=== PATIENT | female | born 1955 | race Caucasian/White ===

== ENCOUNTER → 2021-12-12 14:02 | Outpatient (CLI) | payer MEDICARE, OTHER, SELFPAY ==
[2021-12-12 17:31] LABS: Thyroid Stimulating Hormone 4.14 uIU/mL (0.47-4.68)
== END ==
PROVIDERS: Referring Provider Obstetrics & Gynecology; Visit Provider Obstetrics & Gynecology
DX: R23.2 Flushing (principal); I10 Essential (primary) hypertension
CPT/HCPCS: 36415; 84439; 84443

== ENCOUNTER → 2022-01-25 11:18 | Outpatient (CLI) | payer MEDICARE, OTHER, SELFPAY ==
[2022-01-25 12:25] LABS: COVID19 -Nasal RAPID Negative (Negative)
== END ==
PROVIDERS: Visit Provider Obstetrics & Gynecology
DX: Z20.822 Contact with and (suspected) exposure to COVID-19 (principal); Z01.812 Encounter for preprocedural laboratory examination
CPT/HCPCS: 87635; C9803

== ENCOUNTER 2022-01-28 12:06 | Day surgery (SDC) | payer MEDICARE, OTHER, SELFPAY ==
[2022-01-22 14:37] VITALS: BMI 28.1
[2022-01-28] VITALS (9 sets, daily range): BP systolic 105–140; BP diastolic 63–92; PULSE 70–85; RESP 16–21; TEMP 36.1–37.2; O2SAT 94–99; BMI 28.1
--- NOTE | 2022-01-28 | PATH_ITS ---
[facility] Accession Number: [id number] . 01 Material submitted: . uterus - UTERUS, BILATERAL FALLOPIAN TUBES AND BILATERAL OVARIES . 01 Diagnosis: Uterus, Bilateral Fallopian Tubes, and Bilateral Ovaries, Hysterectomy and Bilateral Salpingo-oophorectomy (Fragmented Weight 62 grams): Endometrium with cystic atrophy; negative for glandular hyperplasia, cytologic atypia, or malignancy; submucosal leiomyoma with no evidence of atypia or malignancy (18 mm). Myometrium with multiple intramural leiomyomas (up to 10 mm in greatest dimension). Fallopian tubes x2 with benign paratubal cysts (up to 3 mm); negative for atypia or malignancy. Ovaries x2; negative for significant histomorphologic abnormality. [facility] 01/30/2022 0901 Local . 01 Electronically signed: . Krystal Breen MD, Pathologist NPI- [id number] . 01 Gross description: . Received in formalin labeled with the patient's name and uterus, bilateral fallopian tubes, and bilateral ovaries consists of 62 grams of fragmented uterus aggregating to 9.2 x 7.0 x 3.8 cm. The uterine serosa is mcgarry, smooth, and glistening with no areas of adhesion or hemorrhage. A portion of relatively intact endometrial cavity is identified measuring 2.5 x 1.5 x 0.8 cm, and is distorted by a white, whorled, well-circumscribed nodule measuring 1.8 cm in greatest dimension. The endometrium is red and velvety, and averages 0.1 cm thick. The myometrium measures up to 1.5 cm in maximum thickness and contains multiple, white, whorled, well-circumscribed nodules measuring up to 1.0 cm in greatest dimension. Sectioning through the submucosal nodule reveals hard, white to yellow areas possibly consistent with calcification, and no hemorrhage or necrosis is identified. . One of the fallopian tubes appears to have the serosa stripped from the lumen and measures 7.5 cm in length by approximately 0.7 cm in diameter, and sectioning reveals a possible stellate lumen. . The ovary associated with the previous fallopian tube weighs 2 grams and measures 3.1 x 0.6 x 0.4 cm. The external surface is mcgarry and smooth, and serial sectioning reveals an unremarkable physiologic cut surface. The second fallopian tube has mcgarry, congested, smooth serosa with multiple cystic structures measuring up to 0.3 cm in greatest dimension. Sectioning reveals an unremarkable stellate lumen. The ovary associated with the previous fallopian tube weighs 1 gram and measures 2.2 x 0.9 x 0.4 cm. The external surface is mcgarry and smooth, and serial sectioning reveals normal physiologic cut surface. . Client Care Specialist sections are submitted as follows: A1: Full-thickness section with calcified nodule following decalcification. A2: Full-thickness section. A3: Client Care Specialist additional nodules. A4: First fallopian tube to include entire fimbriae and client service representative cross-sections. A5: First ovary. A6: Second fallopian tube to include entire fimbriae and client service representative cross-sections. A7: Second ovary. ([id number]) /MRV 01/29/2022 1541 Local . 01 Pathologist provided ICD-10: N95.0, R93.89, D25.9 . 01 CPT . 727806 Specimen Comment: A courtesy copy of this report has been sent to [phone] Performed at: 01 [facility] [address] [place] [address] [address] [facility], [place], [place] [id number] MD Zaid Michaels MD Phone: [phone]
[2022-01-28] MEDS: SCOPOLAMINE 1 PATCH TOP (12:28)
[2022-01-28] MEDS: APREPITANT 40 MG CAPSULE PO (12:29)
[2022-01-28] MEDS: ACETAMINOPHEN 325 MG TABLET 975 MG PO (12:29)
[2022-01-28 12:32] LABS: Add Manual Diff / Slide Review NO; Basophils Absolute Auto 100 /uL (0-100); Basophils Percent Auto 0.9 % (0-2); Eosinophils Absolute Auto 100 /uL (0-450); Eosinophils Percent Auto 1.3 % (2-4); Hematocrit 42.2 % (36-46); Hemoglobin 14.5 g/dL (12.0-16.0); Lymphocytes Absolute Auto 3400 /uL (1100-4500); Lymphocytes Percent Auto 36.1 % (25-40); Mean Corpuscular HGB Conc 34.4 % (30-36); Mean Corpuscular Hemoglobin 30.5 PG (26-34); Mean Corpuscular Volume 88.8 fL (80-100); Monocytes Absolute Auto 500 /uL (0-900); Monocytes Percent Auto 5.7 % (3-14); Neutrophils Absolute Auto 5200 /uL (1500-7000); Platelet Count 357 X10^3/uL (150-400); Red Blood Cell Count 4.76 X10^6/uL (4.0-5.2); Red Cell Distribution Width 12.9 % (11.6-14.8); White Blood Cell Count 9.3 X10^3/uL (4.5-11.0)
[2022-01-28 12:41] LABS: BUN Creatinine Ratio 18.1 (6-22); Blood Urea Nitrogen 15 mg/dL (7-17); Calcium 9.2 mg/dL (8.4-10.2); Carbon Dioxide 29 mmol/L (22-32); Chloride 103 mmol/L (98-107); Estimated Glomerular Filt Rate > 60 mL/min (>60); Glucose 85 mg/dL (80-110); HEMOLYSIS < 15 (0-50); Potassium 4.2 mmol/L (3.4-5.1); Sodium 138 mmol/L (137-145)
[2022-01-28] MEDS: LACTATED RINGERS 1,000 ML 100 ML IV ×3 (12:59→16:56)
--- NOTE | 2022-01-28 13:20 | PM.PREOP ---
Pre-operative Note COVID-19 COVID-19 status: Negative Result date/Date tested (Pos, Neg/Pending): 01/25/22 Criteria for continued procedure: Non-surgical alternatives not available or appropriate per current SOC Interval Note History & Physical reviewed/Exam performed by Physician: Yes Changes to H&P: No
[2022-01-28] MEDS: CEFAZOLIN 2 GM/20 ML SYRINGE IV (14:44)
--- NOTE | 2022-01-28 15:02 | SUR.OPER ---
Lithotomy on padded OR bed. Goss Pad Positioner under torso. Head on pillow, arms padded and tucked at sides. Legs secured in padded yellow fins stirrups.
[2022-01-28] MEDS: ROPIVACAINE 0.2% PF 2 MG/ML 10ML AMP 20 ML INJ (15:12)
[2022-01-28] MEDS: BUPIVACAINE 0.5% (PF) 30 ML, EPINEPHrine 0.15 MG INJ (15:13)
[2022-01-28] MEDS: SUGAMMADEX 500 MG/5 ML VIAL 150 MG IV (15:30)
--- NOTE | 2022-01-28 15:47 | P.OP_ITS ---
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 Small uterine fibroids. Closure Type: primary Specimen(s): other (uterus, tubes and ovaries) Estimated Blood Loss (mL): 10 Procedure in detail: After proper consents were obtained, the patient was taken to the operating room. General anesthesia was induced, and she was placed in the dorsal lithotomy position and prepped and draped in the normal sterile fashion. A larkin catheter was placed, and a speculum placed in the patient's vagina. A single tooth tenaculum was applied to the anterior lip of the cervix, and hegar dilators used to dilate the cervix to 6mm with gentle pressure. A uterine manipulator was gently inserted and the balloon inflated to 5ccs. The tenaculum and speculum were removed from the vagina. Attention was then turned to the abdomen, where 1cc of .25% marcaine with epinephrine was used to infiltrate the skin just below the umbilicus. A scalpel was used to make a 5mm incision, the anterior abdominal wall was elevated, and a Veress needle gently inserted into the abdomen. Intraperitoneal placement was confirmed with a drop of normal saline passed through the veress needle with gravity, and CO2 used to insufflate the abdomen to 15mmHg. A 5mm trocar and sleeve were placed into the abdomen through this incision, using the towel clamps to elevate the abdominal wall, and intraperitoneal placement was confirmed visually with insertion of the laparoscope. Abdominal survey at this time was normal, and lateral ports were placed under direct visualization. These were placed on the left and right, 8cm from the umbilicus and after infiltration of 1mm of local anesthetic as above. The patient was placed in trendelenburg position, and a blunt probe used to gently push the bowel out of the pelvis. The ovaries and fallopian tubes appeared normal bilaterally. A atraumatic grasper was used to elevate the left fallopian tube, and a Powerseal device was used to clamp, cauterize and cut sequentially down the mesosalpinx and the tube removed from the abdomen. The uteroovarian ligament and round ligaments were then cauterized and transected with this device, the anterior and posterior leaflets of the broad ligament and skeletonized and the vesicouterine peritoneum identified. This was transected and a bladder flap created with the powerseal device and gentle traction. The uterine arteries were identified, and cauterized and cut at the level of the internal os. The same procedure was performed on the patient's right, without complication. The Barb loop was inserted into the abdomen, and placed around the uterus at the level of the internal os. After careful inspection for proper placement anteriorly and posteriorly, this device was used to amputate the uterine fundus without complication. The PK device was used to ablate the cervical os, and hemostasis achieved where necessary with the PK device. Attention was then turned to the abdominal wall, where .25% marcaine with epinephrine was used to infiltrate a midline area 2cm above the pubic symphesis. A scalpel was used to make a 3cm minilaparotomy, and a 15mm trocar and sleeve inserted under direct visualization into the abdominal cavity. A 12mm endocatch bag was placed through this port under direct visualization, and carefully deployed into the abdomen. The uterus was placed in the bag, and the bag was closed and removed under direct visualization of all parts of the bag. The open end of the bag was removed through the port, the port was removed, and the open end of the endocatch bag brought through the incision. A small Ibrahima device was inserted to protect the incision and skin, and the uterus was brought to the opening of the incision and carefully hand morcellated out through the incision using a scalpel. After removal of the uterus, the ibrahima device and endocatch bag were removed. The fascia at the minilaparotomy incision was closed using 0 vicryl in a running fashion. The abdomen was re-insufflated, hemostasis at the operative sites assured, and a repeat abdominal survey was normal. The laparoscope was removed from the abdomen, the insufflating gas allowed to escape, and the ports removed. an interrupted suture was used at the mini-laparotomy to close the subcutaneous space in an interrupted fashion, and the skin at all 4 incisions closed with 4-0 biosyn, then covered with steri strips and bandages. The larkin catheter was removed from the bladder. The patient tolerated the procedure well, all counts were correct, 2g of Ancef were given at the beginning of the case and a test was negative on admission. The patient was transported to PACU in stable condition. IVF: 1600ccs UOP: 100ccs of clear yellow urine EBL: 10ccs Complications: none Post-operative Condition: stable Disposition: PACU Plan for aftercare: Routine postop care
[2022-01-28] MEDS: hydrOXYzine pamoate 25 MG CAPSULE PO (16:04)
[2022-01-28] MEDS: LACTATED RINGERS 1,000 ML 42 ML IV (16:07)
--- NOTE | 2022-01-28 16:08 | SUR.PHASEI ---
Per report, pt had a good tug on her larkin during trasnfer from OR bed. No blood noted in urine. Larkin intact, pt denies any pain. Will cont to monitor and pass on in report.
--- NOTE | 2022-01-28 18:42 | PC.NURSE ---
PT ARRIVED TO ROOM 225 POST OP LAP ASSISTED VAGINAL HYSTERECTOMY- TOLERATING DIET WELL , ALLEVYN BANDAGES X 4 TO ABD WHICH IS SOFT AND TENDER- TOLERATING DIET WELL AND COBURN REMOVED PT HAS UNTIL 0230 TO VOID- SHE UNDERSTANDS THIS- ORIENTED TO ROOM AND CALL LIGHT WELL REMOTE ND ALL QUESTIONS ANSWERED TOHER SATISFACTION- LR INFUSING AT 100CC/H- DECLINES ANY PAIN RX INCLUDING TYLENOL OR IBUPROFEN AT THIS TIME
[2022-01-28] MEDS: IBUPROFEN 600 MG TABLET PO (22:55)
[2022-01-28] MEDS: BENZOCAINE/MENTHOL 1 LOZ PKT 1 EACH PO (22:56)
[2022-01-29 00:56] VITALS: BP 124/61; PULSE 87; RESP 18; TEMP 36.5; O2SAT 96
[2022-01-29] MEDS: LACTATED RINGERS 1,000 ML 100 ML IV (02:48)
[2022-01-29] MEDS: ACETAMINOPHEN 325 MG TABLET 650 MG PO (03:38)
[2022-01-29] MEDS: BENZOCAINE/MENTHOL 1 LOZ PKT 1 EACH PO (03:39)
[2022-01-29 04:00] VITALS: BP 119/69; PULSE 61; RESP 18; TEMP 36.6; O2SAT 95
[2022-01-29 05:41] LABS: Add Manual Diff / Slide Review NO; Basophils Absolute Auto 0 /uL (0-100); Basophils Percent Auto 0.3 % (0-2); Eosinophils Absolute Auto 0 /uL (0-450); Hematocrit 39.6 % (36-46); Hemoglobin 13.4 g/dL (12.0-16.0); Lymphocytes Absolute Auto 1300 /uL (1100-4500); Lymphocytes Percent Auto 8.8 % (25-40); Mean Corpuscular HGB Conc 33.9 % (30-36); Mean Corpuscular Hemoglobin 30.1 PG (26-34); Mean Corpuscular Volume 88.7 fL (80-100); Monocytes Absolute Auto 300 /uL (0-900); Monocytes Percent Auto 1.9 % (3-14); Neutrophils Absolute Auto 13300 /uL (1500-7000); Platelet Count 324 X10^3/uL (150-400); Red Blood Cell Count 4.47 X10^6/uL (4.0-5.2); Red Cell Distribution Width 12.7 % (11.6-14.8); White Blood Cell Count 14.9 X10^3/uL (4.5-11.0)
[2022-01-29 05:45] LABS: BUN Creatinine Ratio 21.7 (6-22); Blood Urea Nitrogen 15 mg/dL (7-17); Calcium 8.8 mg/dL (8.4-10.2); Carbon Dioxide 25 mmol/L (22-32); Chloride 102 mmol/L (98-107); Estimated Glomerular Filt Rate > 60 mL/min (>60); Glucose 123 mg/dL (80-110); HEMOLYSIS < 15 (0-50); Potassium 4.5 mmol/L (3.4-5.1); Sodium 135 mmol/L (137-145)
--- NOTE | 2022-01-29 07:04 | PC.NURSE ---
End of shift note. Care of patient from . AAOX4, Good pain relief. Only c/o of GARCIA relieved with tylenol. Up to BR voiding yellow clear urine, no vaginal bleeding. Possibly discharge home today.
[2022-01-29] MEDS: IBUPROFEN 600 MG TABLET PO (09:29)
[2022-01-29 09:59] VITALS: BP 120/68; PULSE 87; RESP 16; TEMP 36.1; O2SAT 96
--- NOTE | 2022-01-29 10:42 | PC.NURSE ---
Discharge instructions and home care handout reviewed with patient, she states understanding and has no further questions or concerns. IV dc;d intact. Incisions remain intact with allevyn dressings in place. Patient will ensure follow up appointment in [address] nix. Instructed to call doctor with questions or concerns. Escorted out via wheelchair by ANTONIA to be discharged to home wit her daughter.
--- NOTE | 2022-01-29 12:02 | CM.DANOTE ---
Initial discharge Planning Assessment: Case received, EMR reviewed. Met with patient and introduced self. PCP Asher Pantoja Payer: Medicare, [address] 66 year old female who underwent a hysterectomy today and today is POD1. She has had an uneventful course and is discharging this morning to home. Daughter will be her for pickup. No DCP needs. P: DC home. SEJ Discharge Planning/Care Management CM Discharge Assessment Start: 01/29/22 12:01 Freq: Status: Active Protocol: Document 01/29/22 12:01 (Rec: 01/29/22 12:02 [id number]) Discharge Planning Assessment Assigned Side Panel Padder Hue Whipple RN/DCP Advance Directives? Yes Advance Directives on File No History Provided By Patient Has Patient been admitted in last 30 No days? Prior Living Arrangements House Household Members spouse Type of transporation used prior to Drives own vehicle admit Independent with ADL's Yes Is patient alert and oriented? Yes Caregiver for Another No Barriers to Discharge No Discharge Plan Home Referrals Initiated None needed Review Status In Process Pre-Anesthesia Assessment Start: 01/22/22 14:37 Freq: Status: Complete Protocol: Document 01/22/22 14:37 [facility] (Rec: 01/22/22 14:41 [facility] [id number]) Pre-Anesthesia Assessment Patient Information Reviewed Via Chart Review Comment COVID screen @ 01/25/22 Seen Specialist in Last 12 Months Yes Specialist Seen Bisque Brusher Primary Language Ivorian Wool Puller Required No Height 165.1 cm Weight 76.657 kg Body Mass Index (BMI) 28.1 Barriers to Learning None Hx Anesthesia Reactions Yes: PONV, takes longer to wake up Anesthesia Review Requested No Digester No Smoking Status Never smoker History of Falling (Recent or History of No ) Patient is completely paralyzed or No completely immobile Mental Status Oriented to own ability Is patient on oxygen? No Hx Sleep Apnea No Currently Taking a Beta Kyaw No Anti-Coagulant Therapy No Cardiac Testing No Hx Pacemaker/ICD No Pacemaker Rep Required? No Cardiac Clearance Received Not Applicable Urinary Catheter Present No Hx Urinary Self Catheterization No Diabetes No Patient No Lactating No Marital Status Lives With spouse Patient Discharge Plan Description Return Home
--- NOTE | 2022-01-29 16:12 | PM.DS.1 ---
History of Present Illness History of Present Illness Date Patient Seen: 01/29/22 Time Patient Seen: 07:50 Chief complaint: OPB Narrative: This patient was admitted for scheduled laparoscopic supracervical hysterectomy and bilateral salpingoophorectomy as detailed in the operative report. Her surgery was uncomplicated, and she was discharged on POD#1 after meeting postoperative goals appropriately. Discharge Providers Provider Discharge Date: 01/29/22 Primary care physician: Asher Pantoja ND Discharge provider: Jessica Marion MD Summary Hospital Course Discharge Diagnosis: s/p hysterectomy Hospital Course: This patient was admitted for scheduled laparoscopic supracervical hysterectomy and bilateral salpingoophorectomy as detailed in the operative report. Her surgery was uncomplicated, and she was discharged on POD#1 after meeting postoperative goals appropriately. Status at Discharge Cognitive/behavioral status at discharge: oriented Functional status at discharge: independent ambulation Overall status at discharge: patient is progressing back to baseline Time Spent with Patient Time spent: Less than 30 minutes Exam Vital Signs (past 8 hours): - 01/29/22 09:46 01/29/22 09:59 Temperature 97.0 F L Pulse Rate 87 Respiratory Rate 16 Blood Pressure 120/68 Pulse Oximetry 96 Oxygen Delivery Method Room Air Oxygen Flow Rate 0 Oxygen Delivery Method Room Air Oxygen Flow Rate 0 Narrative Exam Narrative: Patient resting comfortably in bed. Reports has eaten, ambulated, voided clear yellow urine, passed flatus. Minimal pain, no vaginal bleeding or discharge. Const General: cooperative, healthy appearing, comfortable and well groomed Resp Effort & Inspection: normal respiratory effort Auscultation: clear to auscultation bilaterally Cardio Rate: regular rate Rhythm: regular rhythm GI Inspection: incision (c/d/i x4) Palpation: soft and No tender Extrem General: normal to inspection Objective Labs Result Diagrams: 01/29/22 05:17 01/29/22 05:17 Labs: Laboratory Results - last 24 hr 01/29/22 01/29/22 05:17 05:17 WBC 14.9 H D RBC 4.47 Hgb 13.4 Hct 39.6 MCV 88.7 MCH 30.1 MCHC 33.9 RDW 12.7 Plt Count 324 Neut % (Auto) 89.0 H D Lymph % (Auto) 8.8 L D Glynn % (Auto) 1.9 L Eos % (Auto) 0.0 L Baso % (Auto) 0.3 Neut # (Auto) 68020 H Lymph # (Auto) 1300 Glynn # (Auto) 300 Eos # (Auto) 0 Baso # (Auto) 0 Sodium 135 L Potassium 4.5 Chloride 102 Carbon Dioxide 25 BUN 15 Creatinine 0.69 Estimated GFR > 60 BUN/Creatinine Ratio 21.7 Glucose 123 H Calcium 8.8 PFSH Medical History Ankle pain (~2020) Chicken pox (~1959) Fibroids H/O vaginal delivery Herpes (~1975) Peripheral neuropathy (~2018) Surgical History Anesthesia Broken arm (~1966) Fibroid tumor (~2005) H/O section (~1980) History of cholecystectomy (~1997) History of endoscopy (~2021) Family History Father History of heart disease Hyperlipidemia Hypertension Stroke Mother Cancer Grandfather Cancer Grandfather Cancer Social History household members: spouse Smoking Status: Never smoker alcohol intake: current Discharge Assessment & Plan Assessment and Plan Assessment: Meeting postoperative goals and stable for discharge with routine precautions. Plan of Treatment: Postop check in 2 weeks. Discharge Plan Discharge Plan Patient Disposition: Home Discharge orders & Medications Discharge Orders: Discharge (Order); Ordered 01/29/22 Ordered By: Jessica Marion Prescriptions: New oxycodone 5 mg tablet 5 mg PO Q8H PRN (Reason: pain) Qty: 14 0RF Rx Instructions: Take as often as every 8 hours for pain. Continued lisinopril-hydrochlorothiazide 20-12.5 mg tablet 1 tab PO DAILY pantoprazole 40 mg tablet,delayed release (DR/EC) 40 mg PO DAILY magnesium 500 mg Tablet 500 mg PO DAILY cholecalciferol (vitamin D3) [Vitamin D3] 50 mcg (2,000 unit) Capsule 50 mcg PO DAILY Follow up/Referrals: Asher Pantoja ARNP [Primary Care Provider] - Jessica Marion MD [Physician] - 2 Weeks (incision check) Diet/Activity/Treatments Diet: Regular Activity: Nothing in the vagina for 2 weeks. Avoid lifting more than 10 lbs for 6 weeks. If you have increasing bleeding, pain, fevers, chills, nausea, or any other symptoms or concerns, call or come to the emergency department. Skin/Wound/Dressing Care Dressing: Remove pink dressing day after surgery. Remove steri strips after 1 week. Visit Report/Discharge Packet Instructions: DI for Hysterectomy, DI for Laparoscopy, DI for Prescription Opioid Use Stand Alone Forms: Surgery Discharge Discharge Data Primary Care Provider: Asher Pantoja Attending Provider: Jessica Marion VTE Deep Vein Thrombosis/Pulmonary Embolism Present on Admission: No
== END 2022-01-29 10:35 | disposition home or self-care (01) ==
LOC: OR 12:07 → AC 12:07
PROVIDERS: PCP Registered Nurse; Referring Provider Obstetrics & Gynecology; Visit Provider Obstetrics & Gynecology
PROC: 0UT94ZL Resection of Uterus, Supracervical, Percutaneous Endoscopic Approach (ICD-10-PCS; principal; 2022-01-28 13:30)
DX: N85.00 Endometrial hyperplasia, unspecified (principal); I10 Essential (primary) hypertension; Z80.41 Family history of malignant neoplasm of ovary; D25.1 Intramural leiomyoma of uterus; N83.8 Other noninflammatory disorders of ovary, fallopian tube and broad ligament
CPT/HCPCS: 58542; 36415; 80048; 85025; 86850; 86870; 86900; 86901; J0171; J0330; J0690; J1100; J1885; J2250; J2405; J2704; J2795; J3010; J8501